=== PATIENT | female | born 1980 | race Caucasian/White ===

== ENCOUNTER 2024-10-10 15:57 | Outpatient (CLI) | payer OTHER, SELFPAY | END 2024-10-10 15:58 | disposition home or self-care (01) | PROVIDERS: PCP Nurse Practitioner Family; Visit Provider Nurse Practitioner Family | DX: G43.009 Migraine without aura, not intractable, without status migrainosus (principal); Z79.899 Other long term (current) drug therapy; Z51.81 Encounter for therapeutic drug level monitoring | CPT/HCPCS: 82565; 84460; 85025; 85651; 86140 ==

== ENCOUNTER 2024-12-20 10:52 | Outpatient (CLI) | payer OTHER, SELFPAY | END 2024-12-20 10:53 | disposition home or self-care (01) | PROVIDERS: PCP Nurse Practitioner Family; Visit Provider Nurse Practitioner Family | DX: Z13.6 Encounter for screening for cardiovascular disorders (principal); I10 Essential (primary) hypertension; R00.1 Bradycardia, unspecified; R55 Syncope and collapse; R61 Generalized hyperhidrosis; M06.9 Rheumatoid arthritis, unspecified | CPT/HCPCS: 80053; 80061; 83001; 84443; 84484; 85025; 85651; 86140; 86618 ==